=== PATIENT | female | born 1955 | race Hispanic/Latino ===

== ENCOUNTER 2021-07-19 23:00 | Emergency (ER) | payer OTHER ==
[~2021-07-19] VITALS: Ht 154.9 cm; Wt 95.7 kg
[2021-07-19 23:21] VITALS: BP 131/48
[2021-07-20] MEDS ORDERED: HYDROCODONE/ACETAMINOPHEN 5/325 MG TAB PO ONE (00:30)
[2021-07-20] MEDS ORDERED: SOLU-MEDROL 125MG VIAL IVP ONE (00:30)
[2021-07-20] MEDS ORDERED: SOLU-MEDROL 125MG VIAL ONE (00:31)
[2021-07-20] MEDS ORDERED: HYDROCODONE/ACETAMINOPHEN 5/325 MG TAB ONE (00:31)
[2021-07-20] MEDS ORDERED: METH4TAB3 PO (02:46)
== END 2021-07-20 02:56 | disposition home or self-care (01) ==
LOC: EDH 23:00
DX: S80.01XA Contusion of right knee, initial encounter (principal); M17.11 Unilateral primary osteoarthritis, right knee; E78.00 Pure hypercholesterolemia, unspecified; Z88.0 Allergy status to penicillin; Z79.52 Long term (current) use of systemic steroids; X58.XXXA Exposure to other specified factors, initial encounter; Y93.89 Activity, other specified; Y92.89 Other specified places as the place of occurrence of the external cause; Y99.8 Other external cause status
CPT/HCPCS: 73562; 96374; 99284; J2930

== ENCOUNTER → 2024-12-29 | Outpatient (CLI) | payer OTHER ==
[~2024-12-29] MED LIST: GADOTERATE MEGLUMINE 10 MMOL/20 ML VIAL IV ONE; METH4TAB3 PO
--- NOTE | 2024-12-29 12:06 | HMCIMG ---
MR BRAIN WWO CON HISTORY: Abnormal CT COMPARISON: CT from 12/18/2024 TECHNIQUE: MRI of the brain was performed utilizing multiple pulse sequences in axial, coronal and sagittal planes. Patient was not given contrast through intravenous route. FINDINGS: The ventricles and extraventricular CSF spaces are nondilated for patient's age. There is no midline shift, mass effect or herniation. No subacute hemorrhage is seen. No MR evidence of acute infarct is seen in the diffusion weighted images. Cerebellar tonsils are in normal position. No evidence of mucoperiosteal thickening is seen of the visualized paranasal sinuses. There is enhancing focus measuring 6.3 mm in the the right posterior parafalcine area corresponding to the CT findings suggestive of angioma. IMPRESSION: 1. No MR evidence of acute infarct is seen in the diffusion weighted images. There is enhancing focus measuring 6.3 mm the right posterior parafalcine area corresponding to the CT findings suggestive of angioma.
== END | disposition home or self-care (01) ==
LOC: RAH 08:44
PROVIDERS: ATTEND Internal Medicine
DX: R90.89 Other abnormal findings on diagnostic imaging of central nervous system (principal)
CPT/HCPCS: 70553; A9575